=== PATIENT | female | born 1940 | race Caucasian/White ===

== ENCOUNTER 2020-12-06 05:37 | Observation (INO) | payer OTHER ==
[2020-12-02 08:46] LABS: BASOPHILS % 0.3 % (0.0-1.0); EOSINOPHILS # (AUTO) 0.1 (0.0-0.4); EOSINOPHILS % 0.8 % (0.0-6.0); HEMATOCRIT 40.4 % (34.2-44.1); HEMOGLOBIN 13.3 g/dL (12.0-16.0); LYMPHOCYTES # (AUTO) 1.9 (1.0-3.2); LYMPHOCYTES % 32.5 % (18.0-39.1); MEAN CORPUSCULAR HEMOGLOBIN 31.3 pg (28-32); MEAN CORPUSCULAR HGB CONC 32.9 g/dL (31-35); MEAN CORPUSCULAR VOLUME 95.1 fL (81-99); MONOCYTES # (AUTO) 0.5 (0.2-0.8); MONOCYTES % 7.8 % (4.4-11.3); NEUTROPHILS # (AUTO) 3.5 (2.1-6.9); NEUTROPHILS % 58.3 % (38.7-80.0); PLATELET COUNT 242 x10e3/uL (140-360); RED BLOOD COUNT 4.25 x10e6/uL (3.6-5.1); RED CELL DISTRIBUTION WIDTH 12.5 % (11.7-14.4)
[2020-12-02 09:33] LABS: ANION GAP 12.6 mmol/L (8-16); CALCIUM 9.7 mg/dL (8.4-10.2); CREATININE, SERUM 0.96 mg/dL (0.57-1.11); POTASSIUM 4.6 mmol/L (3.5-5.1)
[~2020-12-06] VITALS: Ht 160 cm; Wt 79.8 kg
[~2020-12-06 05:37] MED LIST: AMLODIPINE BESY10 MG PO; ATORVASTATIN CA20 MG PO; CITALOPRAM HBR40 MG PO; CLOPIDOGREL75 MG PO; GLIMEPIRIDE2 MG PO; LOSARTAN POTASS25 MG PO; METFORMIN HCL850 MG PO; NEURONTIN300 MG PO; VITAMIN B122500 MCG PO; VITAMIN E100 UNI1 PO
[2020-12-06] MEDS ORDERED: CELECOXIB 200 MG CAP ONE (06:12)
[2020-12-06] MEDS ORDERED: DEXAMETHASONE SOD PHOS 10 MG/1 ML VIAL ONE ×2 (06:13→13:30)
[2020-12-06] MEDS ORDERED: SODIUM CHLORIDE 0.9% 50ML 100 ML ONE (06:13)
[2020-12-06] MEDS ORDERED: GABAPENTIN 300 MG CAP ONE (06:13)
[2020-12-06] MEDS ORDERED: SODIUM CHLORIDE 0.9% 500ML 500 ML ONE (06:37)
[2020-12-06] MEDS ORDERED: TRANEXAMIC ACID 1,000 MG/10 ML ML ONE (06:37)
[2020-12-06] MEDS ORDERED: Vancomycin IV 1,000 MG ONE (06:37)
[2020-12-06] MEDS ORDERED: ROPIVACAINE 246.25 MG, EPINEPHRINE HCL 1:1000 1ML 0.5 MG, CLONIDINE HCL 0.08 MG, KETORO... INJ ONE ×5 (07:30)
[2020-12-06] MEDS ORDERED: ONDANSETRON HCL INJ 2MG/ML 2ML 2 MG/ML VIAL IV PRN (08:30)
[2020-12-06] MEDS ORDERED: DOCUSATE SODIUM 100 MG CAP PO PRN (08:30)
[2020-12-06] MEDS ORDERED: SODIUM CHLORIDE 0.9% 1000ML 1,000 ML IV SCH (08:30)
[2020-12-06] MEDS ORDERED: HYDROCODONE/APAP 7.5MG-325MG 1 EA TAB PO PRN (08:30)
[2020-12-06] MEDS ORDERED: DIPHENHYDRAMINE HCL INJ 50 MG/ML VIAL IV PRN (08:30)
[2020-12-06] MEDS ORDERED: ACETAMINOPHEN 650 MG SUPP PR PRN (08:30)
[2020-12-06] MEDS ORDERED: KETOROLAC TROMETHAMINE 30 MG/ML VIAL IV PRN (08:30)
[2020-12-06] MEDS ORDERED: HYDROCODONE/APAP 5MG-325MG TAB PO PRN (08:30)
[2020-12-06] MEDS ORDERED: FENTANYL CITRATE/PF 100MCG/2 ML INJ ONE (09:08)
[2020-12-06] MEDS ORDERED: MORPHINE SULFATE INJ 4 MG/ML INJ 1ML ONE ×2 (09:28→09:36)
[2020-12-06 09:56] VITALS: BP 135/62
[2020-12-06 10:02] VITALS: BP 135/62
[2020-12-06 10:06] VITALS: BP 135/62
[2020-12-06] MEDS: CELECOXIB 100 MG CAP PO SCH ×2 (10:49→17:47)
[2020-12-06] MEDS: ASPIRIN 325 MG TAB PO SCH ×2 (10:49→17:47)
[2020-12-06] MEDS ORDERED: GLYCOPYRROLATE INJ 0.2 MG/ML VIAL ONE (11:55)
[2020-12-06] MEDS ORDERED: SEVOFLURANE INHAL SOLN 250 ML PEN BTL ONE (11:55)
[2020-12-06] MEDS ORDERED: PROPOFOL IV EMULSION 10 MG/ML 20 ML VIAL ONE (11:55)
[2020-12-06] MEDS ORDERED: POVIDONE IODINE 0.05% 0.05 % ML PO ONE (11:55)
[2020-12-06] MEDS ORDERED: ONDANSETRON HCL INJ 2MG/ML 2ML 2 MG/ML VIAL ONE (11:55)
[2020-12-06] MEDS ORDERED: DEXAMETHASONE SOD PHOS INJ 4 MG/ML VIAL ONE (11:55)
[2020-12-06] MEDS ORDERED: LIDOCAINE HCL 2% LOCAL INJ 5 ML SDV VIAL INJ ONE (11:55)
[2020-12-06 11:59] VITALS: BP 131/72
[2020-12-06] MEDS ORDERED: ACETAMINOPHEN 1000 MG/100 ML IV PRN (12:00)
[2020-12-06] MEDS ORDERED: BUPIVACAINE 0.25% 30ML SDV ONE (13:30)
[2020-12-06 15:49] VITALS: BP 147/67
[2020-12-06] MEDS ORDERED: Cefazolin 1 GM in SODIUM CHLORIDE 0.9% 50ML 50 ML IV SCH (16:00)
[2020-12-06] MEDS ORDERED: ZOLPIDEM TARTRATE 5 MG TAB PO PRN (21:00)
== END 2020-12-06 18:18 | disposition home or self-care (01) ==
LOC: OR 05:37 → PACU V 08:32 → IMCU 09:46
PROVIDERS: ADMIT Specialist; ATTEND Specialist
DX: M17.11 Unilateral primary osteoarthritis, right knee (principal); Z20.822 Contact with and (suspected) exposure to COVID-19; Z01.818 Encounter for other preprocedural examination; E11.9 Type 2 diabetes mellitus without complications; K29.70 Gastritis, unspecified, without bleeding; I10 Essential (primary) hypertension; Z85.038 Personal history of other malignant neoplasm of large intestine
CPT/HCPCS: 27447; 36415 ×2; 71046; 73560; 80048; 82948; 85025; 86850; 86900; 86920; 93005; 97110; 97116; 97161; 97530; 99251; C1713 ×3; C1776 ×2; G0378; J0171; J0690; J1100 ×2; J1885; J2001; J2270; J2405; J2704; J2795; J3010; J3370; J7040; U0002